=== PATIENT | female | born 1995 | race Caucasian/White ===

== ENCOUNTER 2018-08-02 17:22 | Observation (INO) | payer OTHER ==
[~2018-08-02] VITALS: Ht 170.2 cm; Wt 100.0 kg
[2018-08-02] VITALS (7 sets, daily range): BP systolic 125–139; BP diastolic 50–73; PULSE 86–113; TEMP 98
[~2018-08-02 17:22] MED LIST: FLINTSTONES1 CTB PO; MOTRIN 600600 MG/TAB PO; NO HOME MEDICATIONS
[2018-08-02 18:10] LABS: BASO # 0.1 (0.0-0.2); BASO % 0.3 % (0.0-2.0); EOS % 0.3 % (0-4.0); GRAN # 13.3 (1.4-6.5); GRAN % 86.5 % (42.2-75.2); HEMATOCRIT 37.7 % (37.0-47.0); HEMOGLOBIN 13.2 g/dl (12.5-16.0); LYMPH # 1.2 (1.2-3.4); LYMPH % 7.7 % (20.0-51.0); MEAN CELL VOLUME 92 fl (80.0-100.0); MEAN CORPUSCULAR HEMOGLOBIN 32 pg (27.0-31.0); MEAN CORPUSCULAR HGB CONC 35 g/dl (33.0-37.0); MEAN PLATELET VOLUME 9.6 fl (7.4-10.4); MONO # 0.7 (0.1-0.6); MONO % 4.7 % (1.7-9.3); PLATELET COUNT 280 K/mm3 (130-400); RED BLOOD COUNT 4.12 M/mm3 (4.10-5.30)
[2018-08-02 18:23] LABS: ALBUMIN 4.3 gm/dL (3.5-5.0); BILIRUBIN,TOTAL 0.4 mg/dL (0.0-1.0); CALCIUM 9.2 mg/dL (8.4-10.2); CREATININE, serum 0.69 (0.52-1.25); POTASSIUM 3.8 mmol/L (3.4-5.0); TOTAL PROTEIN 7.7 gm/dL (6.4-8.2)
--- NOTE | 2018-08-02 21:39 | NUR ---
Pt. arrived to the floor at 2134. Pt. is A&OX3, assessment complete. IV to rt. forearm patent. Dressing to lt. arm with area of drainaged noted. Drainage was marked in the PACU and remains in the boarder at this time. Otherwise the dressing is CDI. Pt. denies pain at this time. Call light within reach.
[2018-08-03] VITALS: BP 110/58; TEMP 83
[2018-08-03 00:30] VITALS: BP 118/54; PULSE 67
[2018-08-03 01:00] VITALS: BP 120/59; PULSE 77
[2018-08-03 02:48] VITALS: BP 108/88; PULSE 78; TEMP 98.5
--- NOTE | 2018-08-03 06:51 | NUR ---
Report from Brad OROZCO.
[2018-08-03 08:35] VITALS: BP 127/77; PULSE 74; TEMP 98.2
--- NOTE | 2018-08-03 09:45 | NUR ---
DRESSING CHANGE COMPLETE BY . PT TOLERATED WELL. MINIMAL PAIN REPORTED BY PATEINT.
[2018-08-03] MEDS ORDERED: CEPHALEXIN500 M1 PO (10:31)
[2018-08-03] MEDS ORDERED: NORCO 325 MG-51 TAB PO (10:32)
--- NOTE | 2018-08-03 11:06 | NUR ---
discharge instructions reviewed with pateint, questions answered. pt will call when dressed and ready
--- NOTE | 2018-08-03 11:23 | NUR ---
SW unable to meet with patient to meet with patient before discharge.
== END 2018-08-03 11:30 | disposition home or self-care (01) ==
LOC: COL.ER 17:22 → SURG 18:59
PROVIDERS: Emergency Medicine; ADMIT Surgery
DX: S49.82XA Other specified injuries of left shoulder and upper arm, initial encounter (principal); D69.6 Thrombocytopenia, unspecified
CPT/HCPCS: G0378; G0379; J0330; J0690; J1100; J1885; J2175; J2405; J2704; J3010; J7030